=== PATIENT | female | born 1990 | race Caucasian/White ===

== ENCOUNTER 2018-11-01 08:53 | Emergency (ER) | payer OTHER ==
[~2018-11-01] VITALS: Ht 154.9 cm; Wt 72.6 kg
[~2018-11-01 08:53] MED LIST: PERCOCET 5-3251 EACH PO; TAMSULOSIN HCL0.4 MG PO; ZOFRAN ODT4 MG PO
[2018-11-01] MEDS ORDERED: BIRTH CONTROL (08:59)
[2018-11-01 09:17] LABS: URINE BILIRUBIN NEGATIVE (Negative); URINE BLOOD TRACE (Negative); URINE CLARITY CLEAR; URINE COLOR YELLOW; URINE GLUCOSE-RANDOM* NEGATIVE (Negative); URINE KETONES NEGATIVE (Negative); URINE NITRITE-REFLEX NEGATIVE (Negative); URINE PROTEIN (DIPSTICK) NEGATIVE (Negative); URINE SPECIFIC GRAVITY 1.025 (1.005-1.035); URINE UROBILINOGEN 0.2 E.U./dl (0.2-1.0)
[2018-11-01 09:18] LABS: URINE LEUKOCYTES-REFLEX 1+ (Negative)
[2018-11-01 09:19] LABS: ABSOLUTE NEUTROPHILS 4.2 thou/uL (1.4-8.2); HEMOGLOBIN 13.4 gm/dL (12.0-15.0); LYMPHOCYTES 30.7 % (24.0-44.0); MCH 29.6 pg (26.0-34.0); MCHC 34.3 g/dL (28.0-37.0); MCV 86.3 fL (80.0-100.0); PLATELET COUNT 237 thou/uL (150-400); POLYS 54.3 % (36.0-66.0); RBC 4.52 mil/uL (4.20-5.00); RDW 12.9 % (10.5-14.5); WBC 7.8 thou/uL (4.0-11.0)
[2018-11-01 09:25] LABS: SQUAMOUS 4-10 Moderate /LPF (0-3)
[2018-11-01 09:26] LABS: CASTS None Seen /LPF (None Seen)
[2018-11-01 09:27] LABS: CALCIUM 8.5 mg/dL (8.5-10.1); CREATININE 0.9 mg/dL (0.6-1.0); POTASSIUM 3.5 mmol/L (3.5-5.1)
[2018-11-01 09:27] LABS: URINE RBC 0-2 Rare /HPF (0-2)
[2018-11-01 09:29] LABS: CRYSTALS None Seen /LPF (None Seen)
[2018-11-01 09:33] LABS: ALBUMIN 3.6 g/dL (3.4-5.0); TOTAL BILIRUBIN 0.5 mg/dL (<0.1-1.0); TOTAL PROTEIN 7.4 g/dL (6.4-8.2)
[2018-11-01] MEDS ORDERED: KEFLEX500 M1 PO (10:42)
[2018-11-01 10:51] VITALS: BP 128/80
== END 2018-11-01 10:59 | disposition home or self-care (01) ==
LOC: ER 08:53
PROVIDERS: Emergency Medicine
DX: N39.0 Urinary tract infection, site not specified (principal); F17.210 Nicotine dependence, cigarettes, uncomplicated

== ENCOUNTER 2019-01-21 18:07 | Emergency (ER) | payer OTHER ==
[~2019-01-21] VITALS: Ht 154.9 cm; Wt 72.6 kg
[~2019-01-21 18:07] MED LIST changes: +BIRTH CONTROL; +KEFLEX500 M1 PO
[2019-01-21] MEDS ORDERED: SRONYX1 EACH PO (18:30)
[2019-01-21 19:38] VITALS: BP 126/88
== END 2019-01-21 19:41 | disposition home or self-care (01) ==
LOC: ER 18:07
DX: M54.2 Cervicalgia (principal); M25.511 Pain in right shoulder; F17.210 Nicotine dependence, cigarettes, uncomplicated; V49.09XA Driver injured in collision with other motor vehicles in nontraffic accident, initial encounter; Y93.I9 Activity, other involving external motion; Y92.410 Unspecified street and highway as the place of occurrence of the external cause; Y99.8 Other external cause status